=== PATIENT | female | born 1985 | race Caucasian/White ===

== ENCOUNTER 2016-11-01 20:56 | Observation (INO) ==
--- NOTE | 2016-11-01 21:07 | Emergency Department Note ---
Disposition Clinical Impression: Suicidal ideation Alcohol intoxication Qualifiers: Complication of substance-induced condition: uncomplicated Qualified Code(s): F10.120 - Alcohol abuse with intoxication, uncomplicated Disposition: Still a Patient Referrals: NO,PCP [Primary Care Provider] - Forms: ED Satisfaction Letter Alcohol HPI - General Chief Complaint: ED Psychiatric Symptoms Stated Complaint: SI, intoxication Time Seen by Provider: 11/01/16 21:05 Source: patient Limitations: no limitations Nursing Notes Reviewed: Yes Vital Signs Reviewed: Yes - History of Present Illness Pt Subjective Complaint: alcohol intoxication Last Drink: unknown Chronic Alcohol Use: Yes Recent Trauma: No Associated symptoms: Reports: suicidality Treatments prior to arrival: none - Related Data Home Medications Medication Instructions Recorded Confirmed FLUoxetine HCl [Prozac] 40 mg PO 11/01/16 Allergies Allergy/AdvReac Type Severity Reaction Status Date / Time Sulfa (Sulfonamide AdvReac See Verified 11/01/16 21:26 Antibiotics) Comments sulfa AdvReac See Uncoded 11/01/16 21:26 Comments All systems ED: reviewed and negative except as stated. Constitutional: Denies: fever, chills Gastrointestinal: Denies: nausea, vomiting Neurological: Reports: headache Past Medical History - Past Medical History Source: patient, old records reviewed, obtained from family (Mother), nursing notes reviewed Medical history: Reports: no medical history Surgical history: Reports: no surgical history Psychiatric history: Reports: no psych history CLINICAL ASSISTANT history: Reports: no CLINICAL ASSISTANT history, bilateral tubal ligation, other - Social History Smoking Status: Current every day smoker Smokeless Tobacco Status: No Alcohol use: Reports: heavy, recent Drug use: Reports: none Physical Exam - General Limitations: no limitations General appearance: alert, in no apparent distress, appears intoxicated - Head Head exam: atraumatic, normocephalic, normal inspection - Eye Eye exam: Present: normal appearance, PERRL, EOMI - ENT ENT exam: normal exam, normal oropharynx, mucous membranes moist - Chest Chest inspection: Present: normal inspection, symmetric chest wall rise - Respiratory Respiratory exam: Present: normal lung sounds bilaterally - Cardiovascular Cardiovascular exam: Present: tachycardia - Abdominal Exam Abdominal exam: Present: soft, Non-Tender. Absent: tenderness, distention, guarding, rebound, rigidity - Neurological Exam Neurological exam: Present: alert - Psychiatric Psychiatric exam: Present: normal affect, suicidal ideation - Skin Skin exam: Present: warm, dry, intact, normal color Course Vital Signs Temperature 98.1 F 11/01/16 20:58 Pulse Rate 124 11/01/16 20:58 Respiratory Rate 20 11/01/16 20:58 Blood Pressure 136/88 11/01/16 20:58 O2 Sat by Pulse Oximetry 95 11/01/16 20:58 Temperature 98.1 F 11/01/16 20:58 Pulse Rate 111 11/01/16 21:32 Respiratory Rate 20 11/01/16 21:32 Blood Pressure 127/87 11/01/16 21:32 O2 Sat by Pulse Oximetry 95 11/01/16 21:33 Oxygen Delivery Oxygen Delivery Room Air Alcohol - Lab Data Result diagrams: 11/01/16 21:27 11/01/16 21:27 Lab Results 11/01/16 11/01/16 11/01/16 Range/Units 21:06 21:06 21:06 WBC (4.3-11.1) K/mcL RBC (3.82-4.97) M/mcL Hgb (11.5-15.4) g/dL Hct (35.3-44.9) % MCV (83.0-100.0) fL MCH (28.0-33.3) pg MCHC (31.6-35.5) g/dL RDW (11.5-14.5) % Plt Count (140-400) K/mcL MPV (9.4-12.4) fL Immature Gran % (0-4) % Seg Neutrophils % % Lymphocytes % % Monocytes % % Eosinophils % % Basophils % % Neutrophils # (1.6-8.9) K/mcL Lymphocytes # (0.6-4.6) K/mcL Monocytes # (0.0-1.3) K/mcL Eosinophils # (0.0-0.6) K/mcL Basophils # (0.0-0.2) K/mcL Sodium (136-145) mEq/L Potassium (3.5-4.5) mEq/L Chloride (98-109) mEq/L Carbon Dioxide (19-29) mEq/L BUN (7-20) mg/dL Creatinine (0.57-1.11) mg/dL Est GFR ( Amer) (> 60) Est GFR (Non-Af Amer) (> 60) BUN/Creatinine Ratio (6-26) Glucose (70-99) mg/dL Calculated Osmolality (280-300) Calcium (8.6-10.8) mg/dL Total Bilirubin (0.2-1.2) mg/dL Direct Bilirubin (0.0-0.5) mg/dL Indirect Bilirubin (0.0-1.2) mg/dL AST (5-34) Units/L ALT (0-55) Units/L Alkaline Phosphatase (38-126) Units/L Serum Total Protein (6.0-8.3) g/dL Albumin (3.5-5.0) g/dL Globulin (2.4-3.5) g/dL Albumin/Globulin Ratio (1.1-2.2) Urine Color Yellow (Yellow) Urine Clarity Cloudy A (Clear) Urine pH 6.0 (5.0-8.0) pH Units Ur Specific [place] 1.008 L (1.010-1.025) Urine Protein Negative (Neg-Trace) mg/dL Urine Glucose (UA) Normal (Normal) mg/dL Urine Ketones Negative (Negative) mg/dL Urine Blood Negative (Negative) Urine Nitrite Negative (Negative) Urine Bilirubin Negative (Negative) Urine Urobilinogen Normal (Normal) mg/dL Ur Leukocyte Esterase Trace H (Negative) Urine Microscopic RBC 0-3 (0-3) per hpf Urine Microscopic WBC 5-15 H (0-3) per hpf Ur Squamous Epith Cells Many H (None-Few) per lpf Urine Bacteria Few (None-Few) per hpf Hyaline Casts None Seen (None-Few) per lpf Urine Test Negative (Negative) Salicylates (15-30) mg/dL Urine Opiates Screen Negative (Uavttm=603) ng/mL Acetaminophen (10-30) mcg/mL Ur Barbiturates Screen Negative (Lwskfh=703) ng/mL Ur Phencyclidine Scrn Negative (Cutoff=25) ng/mL Ur Amphetamines Screen Negative (Gasmbd=8917) ng/mL U Benzodiazepines Scrn Negative (Qxnjzn=462) ng/mL Urine Cocaine Screen Negative (Cutoff= 300) ng/mL U Marijuana (THC) Screen Negative (Cutoff = 50) ng/mL Ethyl Alcohol (0-10) mg/dL 11/01/16 11/01/16 Range/Units 21:27 21:27 WBC 9.0 (4.3-11.1) K/mcL RBC 5.20 H (3.82-4.97) M/mcL Hgb 15.6 H (11.5-15.4) g/dL Hct 45.0 H (35.3-44.9) % MCV 86.5 (83.0-100.0) fL MCH 30.0 (28.0-33.3) pg MCHC 34.7 (31.6-35.5) g/dL RDW 13.5 (11.5-14.5) % Plt Count 370 (140-400) K/mcL MPV 9.9 (9.4-12.4) fL Immature Gran % 0.4 (0-4) % Seg Neutrophils % 55.0 % Lymphocytes % 35.8 % Monocytes % 6.4 % Eosinophils % 1.8 % Basophils % 0.6 % Neutrophils # 5.0 (1.6-8.9) K/mcL Lymphocytes # 3.2 (0.6-4.6) K/mcL Monocytes # 0.6 (0.0-1.3) K/mcL Eosinophils # 0.2 (0.0-0.6) K/mcL Basophils # 0.1 (0.0-0.2) K/mcL Sodium 142 (136-145) mEq/L Potassium 4.3 (3.5-4.5) mEq/L Chloride 106 (98-109) mEq/L Carbon Dioxide 23 (19-29) mEq/L BUN 11 (7-20) mg/dL Creatinine 1.15 H (0.57-1.11) mg/dL Est GFR ( Amer) > 60 (> 60) Est GFR (Non-Af Amer) 55 L (> 60) BUN/Creatinine Ratio 10 (6-26) Glucose 108 H (70-99) mg/dL Calculated Osmolality 294 (280-300) Calcium 9.1 (8.6-10.8) mg/dL Total Bilirubin 0.2 (0.2-1.2) mg/dL Direct Bilirubin 0.1 (0.0-0.5) mg/dL Indirect Bilirubin 0.1 (0.0-1.2) mg/dL AST 23 (5-34) Units/L ALT 25 (0-55) Units/L Alkaline Phosphatase 76 (38-126) Units/L Serum Total Protein 8.2 (6.0-8.3) g/dL Albumin 4.1 (3.5-5.0) g/dL Globulin 4.1 H (2.4-3.5) g/dL Albumin/Globulin Ratio 1.0 L (1.1-2.2) Urine Color (Yellow) Urine Clarity (Clear) Urine pH (5.0-8.0) pH Units Ur Specific [place] (1.010-1.025) Urine Protein (Neg-Trace) mg/dL Urine Glucose (UA) (Normal) mg/dL Urine Ketones (Negative) mg/dL Urine Blood (Negative) Urine Nitrite (Negative) Urine Bilirubin (Negative) Urine Urobilinogen (Normal) mg/dL Ur Leukocyte Esterase (Negative) Urine Microscopic RBC (0-3) per hpf Urine Microscopic WBC (0-3) per hpf Ur Squamous Epith Cells (None-Few) per lpf Urine Bacteria (None-Few) per hpf Hyaline Casts (None-Few) per lpf Urine Test (Negative) Salicylates < 5.0 L (15-30) mg/dL Urine Opiates Screen (Hoodyg=610) ng/mL Acetaminophen < 1.0 L (10-30) mcg/mL Ur Barbiturates Screen (Ccidmu=297) ng/mL Ur Phencyclidine Scrn (Cutoff=25) ng/mL Ur Amphetamines Screen (Xvzpny=7471) ng/mL U Benzodiazepines Scrn (Aozvvn=019) ng/mL Urine Cocaine Screen (Cutoff= 300) ng/mL U Marijuana (THC) Screen (Cutoff = 50) ng/mL Ethyl Alcohol 325 H (0-10) mg/dL
[2016-11-01 21:25] LABS: Bilirubin,Urine Negative (Negative); Blood,Urine Negative (Negative); Clarity,Urine Cloudy (Clear); Color,Urine Yellow (Yellow); Glucose,Urine (UA) Normal (Normal); Ketones,Urine Negative (Negative); Leukocyte Esterase,Urine Trace (Negative); Nitrite,Urine Negative (Negative); Protein,Urine Negative (Neg-Trace); Specific Gravity,Urine 1.008 (1.010-1.025); Urobilinogen,Urine Normal (Normal)
[2016-11-01 21:27] LABS: Bacteria,Urine Few per hpf (None-Few); Hyaline Casts,Urine None Seen per lpf (None-Few); RBC,Urine 0-3 per hpf (0-3); Squamous Epithelial Cell,Urine Many per lpf (None-Few)
[2016-11-01 21:31] LABS: Amphetamine Screen,Urine Negative ng/mL (Cutoff=1000); Barbiturate Screen,Urine Negative ng/mL (Cutoff=200); Benzodiazepines Screen,Urine Negative ng/mL (Cutoff=200); Cannabinoid Screen,Urine Negative ng/mL (Cutoff = 50); Cocaine Screen,Urine Negative ng/mL (Cutoff= 300); Opiate Screen,Urine Negative ng/mL (Cutoff=300); Phencyclidine Screen,Urine Negative ng/mL (Cutoff=25)
[2016-11-01 21:33] LABS: Basophils # 0.1 K/mcL (0.0-0.2); Basophils % 0.6 %; Eosinophils # 0.2 K/mcL (0.0-0.6); Eosinophils % 1.8 %; Hemoglobin 15.6 g/dL (11.5-15.4); Immature Granulocytes % 0.4 % (0-4); Lymphocytes # 3.2 K/mcL (0.6-4.6); Lymphocytes % 35.8 %; Mean Corpuscular HGB Conc 34.7 g/dL (31.6-35.5); Mean Corpuscular Volume 86.5 fL (83.0-100.0); Mean Platelet Volume 9.9 fL (9.4-12.4); Monocytes # 0.6 K/mcL (0.0-1.3); Monocytes % 6.4 %; Platelet Count 370 K/mcL (140-400); Red Cell Distribution Width 13.5 % (11.5-14.5)
[2016-11-01 21:48] LABS: Alanine Aminotransferase 25 Units/L (0-55); Albumin 4.1 g/dL (3.5-5.0); Alkaline Phosphatase 76 Units/L (38-126); Aspartate Amino Transferase 23 Units/L (5-34); BUN/Creatinine Ratio 10 (6-26); Bilirubin,Direct 0.1 mg/dL (0.0-0.5); Bilirubin,Indirect 0.1 mg/dL (0.0-1.2); Bilirubin,Total 0.2 mg/dL (0.2-1.2); Blood Urea Nitrogen 11 mg/dL (7-20); Calcium 9.1 mg/dL (8.6-10.8); Carbon Dioxide 23 mEq/L (19-29); Chloride 106 mEq/L (98-109); Globulin 4.1 g/dL (2.4-3.5); Glucose 108 mg/dL (70-99); Osmolality,Calculated 294 (280-300); Potassium 4.3 mEq/L (3.5-4.5); Sodium 142 mEq/L (136-145); Total Protein 8.2 g/dL (6.0-8.3); eGFR For African Americans > 60 (> 60); eGFR For Non-African Americans 55 (> 60)
[2016-11-01 21:50] LABS: Acetaminophen < 1.0 mcg/mL (10-30); Ethanol 325 mg/dL (0-10); Salicylate < 5.0 mg/dL (15-30)
[2016-11-01] MEDS ORDERED: Ibuprofen 800 MG TABLET PO ONE (21:57)
[2016-11-01] MEDS ORDERED: 0.9 % Sodium Chloride 1,000 ML IVC ONE ×2 (21:57→23:22)
[2016-11-02] MEDS: Nicotine 21 MG PATCH.TD24 TD SCH ×2 (01:25→07:51)
[2016-11-02] MEDS ORDERED: Naloxone 0.4 MG/ML INJ IVP PRN (01:49)
[2016-11-02] MEDS ORDERED: *HR* LORazepam 2 MG/ML VIAL IVP PRN ×3 (01:52→10:21)
--- NOTE | 2016-11-02 02:06 | Internal Med History&Physical ---
Date of Encounter: 11/02/16 Time of Encounter: 01:56 Assessment and Plan (1) Suicidal ideation Current visit: Yes Status: Acute Suicide precautions. Sitter at bedside. Psychiatry consult (2) Alcohol intoxication Current visit: Yes Status: Acute Pt has h/o alcohol abuse and intoxication. She is awake at this time and is able to maintain airway. She is at risk of alcohol withdrawal needs close monitoring / CIWA protocol, while awaiting psychiatry evaluation. Qualifiers: Complication of substance-induced condition: with unspecified complication Qualified Code(s): F10.129 - Alcohol abuse with intoxication, unspecified (3) Alcohol abuse Current visit: Yes Status: Chronic She is at risk of alcohol withdrawal needs close monitoring / CIWA protocol, while awaiting psychiatry evaluation. Thiamine and folate / vitamin supplements. (4) Nicotine dependence Current visit: Yes Status: Acute Nicotine patch Qualifiers: Nicotine product type: cigarettes Substance use status: uncomplicated Qualified Code(s): F17.210 - Nicotine dependence, cigarettes, uncomplicated Internal Medicine - H&P: HPI Chief complaint: Suicidal ideation Admitted From: Emergency Dept Plans for Post Hospital Care: Transfer Psych Facility History of present illness: Ms. Senior is a 31 year old female with history of alcohol abuse and untreated depression, was brought to the emergency department by her mother for suicidal ideation. Patient reports that she told her mother " I dont want to be here anymore" - She does not report any plans for suicide. She apparently got ticket to go to [place], "just to be there". She has no friends or family in [place]. She does not report homicidal ideation. She reports that she drinks about 15 beers a day for about 3 years. She detoxed herself once and she apparently felt that she was going to at that time. She relapsed due to her cravings. She feels that it is affecting her life and is not able to do any thing - " I drink all day". She denies chest pain, shortness of breath, cough, expectoration, fever, chills, nausea, vomiting, headache, blurry vision, weakness of extremities. She was evaluated in the emergency department and her ETOH level was 325 mg/dL. She needs psychiatry evaluation for suicidal ideation and admitted to the hospitalist service for alcohol intoxication. Past Med Surg Social Fam HX - Past Medical History Medical history: no medical history Psychiatric history: no psych history - Past Surgical History Surgical History: no surgical history - Social History Smoking Status: Current every day smoker Packs per day: 1 Smokeless Tobacco Status: No Alcohol use: heavy, recent Drug use: none - Family History Maternal Grandfather Hx Family Respiratory Disorders: Yes (Emphysema) Hx Family Cancer: No Hx Family GI Disorders: No Hx Family Genitourinary Disorders: No Hx Family Endocrine Disorder: No Hx Family Musculoskeletal Disorders: No Hx Family Neuromuscular Disorders: No Hx Family Neurologic Disorders: No Hx Family HEENT Disorders: No Hx Family Autoimmune Disorders: No Hx Family Reproductive Disorders: No Hx Family Psychosocial Disorders: No Hx Family Medical Disorders: No Internal Medicine - H&P: Meds FLUoxetine HCl [Prozac] 40 mg PO 11/01/16 [History] Allergies Sulfa (Sulfonamide Antibiotics) Adverse Reaction (Verified 11/01/16 21:26) See Comments sulfa Adverse Reaction (Uncoded 11/01/16 21:26) See Comments water blisters on skin All Systems PM: A 10-system review of systems was performed and is negative for pertinent findings except as documented above in the HPI. - Constitutional Vitals: Temp Pulse Resp BP Pulse Ox 97.9 F 115 20 110/70 94 11/02/16 00:54 11/02/16 00:54 11/02/16 00:54 11/02/16 00:54 11/02/16 00:54 Exam: General: Not in acute distress at the time of my evaluation HEENT: Oral mucosa is moist. No conjunctival palor or scleral icterus Neck: No obvious neck swellings Lungs: Clear to auscultation Cardiac: Regular rate and rhythm. No significant murmurs Abdomen: Soft, non tender. Bowel sounds present Genitourinary: No weller catheter Neurological: Alert and oriented. No gross localizing deficits Psych: Not aggressive or agitated Extremities: no significant leg edema Skin: No generalized rash Internal Med - H&P Results - Labs CBC & Chem 7: 11/01/16 21:27 11/01/16 21:27 - EKG Data -: EKG Interpreted by Myself EKG shows normal: sinus rhythm Rate: tachycardia
--- NOTE | 2016-11-02 05:49 | Emergency Department Note ---
Disposition Clinical Impression: Suicidal ideation Alcohol intoxication Qualifiers: Complication of substance-induced condition: with unspecified complication Qualified Code(s): F10.129 - Alcohol abuse with intoxication, unspecified Disposition: Admitted As Inpatient Condition: Fair Psych HPI - General Chief Complaint: ED Psychiatric Symptoms Stated Complaint: SI, intoxication Time Seen by Provider: 11/01/16 21:05 Source: patient Mode of arrival: ambulatory Limitations: no limitations Nursing Notes Reviewed: Yes Vital Signs Reviewed: Yes - Related Data Home Medications Medication Instructions Recorded Confirmed FLUoxetine HCl [Prozac] 40 mg PO 11/01/16 Allergies Allergy/AdvReac Type Severity Reaction Status Date / Time Sulfa (Sulfonamide AdvReac See Verified 11/01/16 21:26 Antibiotics) Comments sulfa AdvReac See Uncoded 11/01/16 21:26 Comments Constitutional: Denies: fever, chills Gastrointestinal: Denies: nausea, vomiting Neurological: Reports: headache Past Medical History - Past Medical History Medical history: Reports: no medical history Surgical history: Reports: no surgical history Psychiatric history: Reports: no psych history CRISIS CLINICIAN history: Reports: no CRISIS CLINICIAN history, bilateral tubal ligation, other - Social History Smoking Status: Current every day smoker Smokeless Tobacco Status: No Alcohol use: Reports: heavy, recent Drug use: Reports: none Physical Exam - General Limitations: no limitations General appearance: alert, in no apparent distress, appears intoxicated Course Vital Signs Temperature 98.1 F 11/01/16 20:58 Pulse Rate 124 11/01/16 20:58 Respiratory Rate 20 11/01/16 20:58 Blood Pressure 136/88 11/01/16 20:58 O2 Sat by Pulse Oximetry 95 11/01/16 20:58 Temperature 97.9 F 11/02/16 03:35 Pulse Rate 109 11/02/16 03:35 Respiratory Rate 20 11/02/16 03:35 Blood Pressure 94/62 11/02/16 03:35 O2 Sat by Pulse Oximetry 92 11/02/16 03:35 Oxygen Delivery Oxygen Delivery Room Air Psych - MDM Narrative Medical decision making narrative: I, Hernandez Tinsley, examined this patient and my medical decision-making was reviewed with the EMBEDDED SOFTWARE ARCHITECT/PA/Advanced Practice Nurse/Resident Physician. I agree with the documented findings, disposition and treatment plan as described except to the extent set forth below. 31-year-old female received in signout at 11 PM pending laboratory evaluation, reevaluation and disposition. Patient is intoxicated and will not be sober until the pharmaceutical service representative. She was mildly tachycardic and was started on IV fluids emergency department with improvement of the heart rate. Patient will be admitted to the hospital for further care and evaluation of her intoxication and suicidal ideation. Patient is comfortable with this plan. - Lab Data Result diagrams: 11/01/16 21:27 11/01/16 21:27 Lab Results 11/01/16 11/01/16 11/01/16 Range/Units 21:06 21:06 21:06 WBC (4.3-11.1) K/mcL RBC (3.82-4.97) M/mcL Hgb (11.5-15.4) g/dL Hct (35.3-44.9) % MCV (83.0-100.0) fL MCH (28.0-33.3) pg MCHC (31.6-35.5) g/dL RDW (11.5-14.5) % Plt Count (140-400) K/mcL MPV (9.4-12.4) fL Immature Gran % (0-4) % Seg Neutrophils % % Lymphocytes % % Monocytes % % Eosinophils % % Basophils % % Neutrophils # (1.6-8.9) K/mcL Lymphocytes # (0.6-4.6) K/mcL Monocytes # (0.0-1.3) K/mcL Eosinophils # (0.0-0.6) K/mcL Basophils # (0.0-0.2) K/mcL Sodium (136-145) mEq/L Potassium (3.5-4.5) mEq/L Chloride (98-109) mEq/L Carbon Dioxide (19-29) mEq/L BUN (7-20) mg/dL Creatinine (0.57-1.11) mg/dL Est GFR ( Amer) (> 60) Est GFR (Non-Af Amer) (> 60) BUN/Creatinine Ratio (6-26) Glucose (70-99) mg/dL Calculated Osmolality (280-300) Calcium (8.6-10.8) mg/dL Total Bilirubin (0.2-1.2) mg/dL Direct Bilirubin (0.0-0.5) mg/dL Indirect Bilirubin (0.0-1.2) mg/dL AST (5-34) Units/L ALT (0-55) Units/L Alkaline Phosphatase (38-126) Units/L Serum Total Protein (6.0-8.3) g/dL Albumin (3.5-5.0) g/dL Globulin (2.4-3.5) g/dL Albumin/Globulin Ratio (1.1-2.2) Urine Color Yellow (Yellow) Urine Clarity Cloudy A (Clear) Urine pH 6.0 (5.0-8.0) pH Units Ur Specific [place] 1.008 L (1.010-1.025) Urine Protein Negative (Neg-Trace) mg/dL Urine Glucose (UA) Normal (Normal) mg/dL Urine Ketones Negative (Negative) mg/dL Urine Blood Negative (Negative) Urine Nitrite Negative (Negative) Urine Bilirubin Negative (Negative) Urine Urobilinogen Normal (Normal) mg/dL Ur Leukocyte Esterase Trace H (Negative) Urine Microscopic RBC 0-3 (0-3) per hpf Urine Microscopic WBC 5-15 H (0-3) per hpf Ur Squamous Epith Cells Many H (None-Few) per lpf Urine Bacteria Few (None-Few) per hpf Hyaline Casts None Seen (None-Few) per lpf Urine Test Negative (Negative) Salicylates (15-30) mg/dL Urine Opiates Screen Negative (Pkydry=294) ng/mL Acetaminophen (10-30) mcg/mL Ur Barbiturates Screen Negative (Wtosem=304) ng/mL Ur Phencyclidine Scrn Negative (Cutoff=25) ng/mL Ur Amphetamines Screen Negative (Mdltii=5379) ng/mL U Benzodiazepines Scrn Negative (Yiqazy=780) ng/mL Urine Cocaine Screen Negative (Cutoff= 300) ng/mL U Marijuana (THC) Screen Negative (Cutoff = 50) ng/mL Ethyl Alcohol (0-10) mg/dL 11/01/16 11/01/16 Range/Units 21:27 21:27 WBC 9.0 (4.3-11.1) K/mcL RBC 5.20 H (3.82-4.97) M/mcL Hgb 15.6 H (11.5-15.4) g/dL Hct 45.0 H (35.3-44.9) % MCV 86.5 (83.0-100.0) fL MCH 30.0 (28.0-33.3) pg MCHC 34.7 (31.6-35.5) g/dL RDW 13.5 (11.5-14.5) % Plt Count 370 (140-400) K/mcL MPV 9.9 (9.4-12.4) fL Immature Gran % 0.4 (0-4) % Seg Neutrophils % 55.0 % Lymphocytes % 35.8 % Monocytes % 6.4 % Eosinophils % 1.8 % Basophils % 0.6 % Neutrophils # 5.0 (1.6-8.9) K/mcL Lymphocytes # 3.2 (0.6-4.6) K/mcL Monocytes # 0.6 (0.0-1.3) K/mcL Eosinophils # 0.2 (0.0-0.6) K/mcL Basophils # 0.1 (0.0-0.2) K/mcL Sodium 142 (136-145) mEq/L Potassium 4.3 (3.5-4.5) mEq/L Chloride 106 (98-109) mEq/L Carbon Dioxide 23 (19-29) mEq/L BUN 11 (7-20) mg/dL Creatinine 1.15 H (0.57-1.11) mg/dL Est GFR ( Amer) > 60 (> 60) Est GFR (Non-Af Amer) 55 L (> 60) BUN/Creatinine Ratio 10 (6-26) Glucose 108 H (70-99) mg/dL Calculated Osmolality 294 (280-300) Calcium 9.1 (8.6-10.8) mg/dL Total Bilirubin 0.2 (0.2-1.2) mg/dL Direct Bilirubin 0.1 (0.0-0.5) mg/dL Indirect Bilirubin 0.1 (0.0-1.2) mg/dL AST 23 (5-34) Units/L ALT 25 (0-55) Units/L Alkaline Phosphatase 76 (38-126) Units/L Serum Total Protein 8.2 (6.0-8.3) g/dL Albumin 4.1 (3.5-5.0) g/dL Globulin 4.1 H (2.4-3.5) g/dL Albumin/Globulin Ratio 1.0 L (1.1-2.2) Urine Color (Yellow) Urine Clarity (Clear) Urine pH (5.0-8.0) pH Units Ur Specific [place] (1.010-1.025) Urine Protein (Neg-Trace) mg/dL Urine Glucose (UA) (Normal) mg/dL Urine Ketones (Negative) mg/dL Urine Blood (Negative) Urine Nitrite (Negative) Urine Bilirubin (Negative) Urine Urobilinogen (Normal) mg/dL Ur Leukocyte Esterase (Negative) Urine Microscopic RBC (0-3) per hpf Urine Microscopic WBC (0-3) per hpf Ur Squamous Epith Cells (None-Few) per lpf Urine Bacteria (None-Few) per hpf Hyaline Casts (None-Few) per lpf Urine Test (Negative) Salicylates < 5.0 L (15-30) mg/dL Urine Opiates Screen (Idyiab=279) ng/mL Acetaminophen < 1.0 L (10-30) mcg/mL Ur Barbiturates Screen (Exriln=649) ng/mL Ur Phencyclidine Scrn (Cutoff=25) ng/mL Ur Amphetamines Screen (Xxtqdw=5601) ng/mL U Benzodiazepines Scrn (Zphpdi=779) ng/mL Urine Cocaine Screen (Cutoff= 300) ng/mL U Marijuana (THC) Screen (Cutoff = 50) ng/mL Ethyl Alcohol 325 H (0-10) mg/dL Psychiatric Medical Clearance - Medical Clearance Checklist Medical History: No Social History Section defined Current Vitals: Last Vital Signs Temp 97.9 F 11/02/16 03:35 Pulse 109 11/02/16 03:35 Resp 20 11/02/16 03:35 BP 94/62 11/02/16 03:35 Pulse Ox 92 11/02/16 03:35 Psychiatric Lab Panel: Drug Levels and Toxicity 11/01/16 11/01/16 21:06 21:27 Urine Opiates Screen Negative Acetaminophen < 1.0 L Ur Barbiturates Screen Negative Ur Phencyclidine Scrn Negative Ur Amphetamines Screen Negative U Benzodiazepines Scrn Negative Urine Cocaine Screen Negative U Marijuana (THC) Screen Negative Ethyl Alcohol 325 H Abnormal Labs: Abnormal lab results RBC 5.20 M/mcL (3.82-4.97) H 11/01/16 21:27 Hgb 15.6 g/dL (11.5-15.4) H 11/01/16 21:27 Hct 45.0 % (35.3-44.9) H 11/01/16 21: Creatinine 1.15 mg/dL (0.57-1.11) H 11/01/16 21: Est GFR (Non-Af Amer) 55 (> 60) L 11/01/16 21: Glucose 108 mg/dL (70-99) H 11/01/16 21: Globulin 4.1 g/dL (2.4-3.5) H 11/01/16 21: Albumin/Globulin Ratio 1.0 (1.1-2.2) L 11/01/16 21: Urine Clarity Cloudy (Clear) A 11/01/16 21: Ur Specific [place] 1.008 (1.010-1.025) L 11/01/16 21: Ur Leukocyte Esterase Trace (Negative) H 11/01/16 21:06 Urine Microscopic WBC 5-15 per hpf (0-3) H 11/01/16 21:06 Ur Squamous Epith Cells Many per lpf (None-Few) H 11/01/16 21:06 Salicylates < 5.0 mg/dL (15-30) L 11/01/16 21: Acetaminophen < 1.0 mcg/mL (10-30) L 11/01/16 21: Ethyl Alcohol 325 mg/dL (0-10) H 11/01/16 21: Statement of Medical Clearance: I have evaluated the patient, reviewed diagnostic information, and certify that the patient's medical condition is sufficiently stable that transfer to the psychiatric unit does not pose a significant risk of deterioration.
[2016-11-02] MEDS ORDERED: *HR* LORazepam 2 MG/ML VIAL IVP ONE (08:09)
[2016-11-02] MEDS ORDERED: Thiamine (B-1) 100 MG TABLET PO SCH (09:00)
[2016-11-02] MEDS ORDERED: Vitamin B Complex/Vit C/Vit E 1 EACH TABLET PO SCH (09:00)
[2016-11-02] MEDS ORDERED: Folic Acid 1 MG TABLET PO SCH (09:00)
--- NOTE | 2016-11-02 10:20 | Event Note ---
Date of Encounter: 11/02/16 Time of Encounter: 09:30 Patient seen and examined. On examination, patient sleeps supine in bed. Patient had just received 1 mg of Ativan IV for a CIWA score of 9. She is resting comfortably and awakened easily to light touch. She denied pain or concerns at this time. She denies current suicidal ideation but quickly falls back to sleep after speaking. Urinalysis negative. Tox screen negative except for alcohol. Mild acute kidney injury noted, will trend. Her mother is at the bedside. We will continue to monitor her for alcohol withdrawal. It is unclear how many beers she drinks per day but it appears as if she is a heavy drinker. We will continue suicide precautions and await psychiatry's recommendations. At this point, she is comfortable and not displaying signs of withdrawal, if she starts to withdrawal, will add by mouth Librium. 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 We will continue to monitor and assess for signs with withdrawal and continue suicide precautions. Awaiting psychiatry's recommendations.
[2016-11-02] MEDS: *HR* LORazepam 2 MG/ML VIAL IVP PRN ×2 (12:26→18:10)
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
[2016-11-02 18:46] VITALS: BP 117/80
--- NOTE | 2016-11-02 19:13 | Discharge Summary ---
Date of Encounter: 11/02/16 Time of Encounter: 19:11 - Discharge Diagnosis (1) Suicidal ideation Priority: Secondary Status: Acute (2) Alcohol intoxication Priority: Primary Status: Acute Qualifiers: Complication of substance-induced condition: with unspecified complication Qualified Code(s): F10.129 - Alcohol abuse with intoxication, unspecified (3) Alcohol abuse Priority: Secondary Status: Chronic (4) Nicotine dependence Priority: Secondary Status: Acute Qualifiers: Nicotine product type: cigarettes Substance use status: uncomplicated Qualified Code(s): F17.210 - Nicotine dependence, cigarettes, uncomplicated (5) Severe single current episode of major depressive disorder, without psychotic features Priority: Secondary Status: Acute - Discharge Medications Home Medications: FLUoxetine HCl [Prozac] 40 mg PO DAILY 11/01/16 [History] Allergies/Adverse Reactions: Allergies Sulfa (Sulfonamide Antibiotics) Allergy (Verified 11/02/16 13:04) Blister sulfa Allergy (Uncoded 11/02/16 13:04) Blister Date of admission: 11/01/16 23:52 Primary care physician: PCP NO Consults: 11/02/16 01:52 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 11/02/16 01:53 Consult to Psychiatry [CONS] Routine Consulting Provider: Roma Godfrey Reason for Consult: Suicidal ideation Call Completed: No - Patient Status Disposition: Transfer Psychiatric Hosp Condition: Fair Functional capacity at discharge: independent ambulation Overall status at discharge: patient is progressing back to baseline - Discharge Instructions Follow Up With: NO,PCP [Primary Care Provider] - Additional Instructions: Refrain from cigarette smoking. - Diet and Activity Activity: increase activity as tolerated Diet: regular diet Hospital course: Ms. Senior is a 31 year old female with no significant past medical history who was brought to the hospital for evaluation of suicidal ideation. She has a reported history of depression and alcohol dependence and abuse. She was alcohol intoxicated. She was admitted to the medical service. She was treated with IV fluids. She was given IV Ativan for withdrawal symptoms.she was monitored for withdrawal. Psychiatry was consulted and they recommended transfer to the inpatient psychiatric [facility] for initiation of antidepressant therapy and close observation. At this point the patient requires psychiatric admission. I have discussed this plan with her and she agrees to go voluntarily. She is medically clear for discharge to inpatient psychiatric floor. She will be initiated on a Valium taper by psychiatry. - Time Spent with Patient Total time spent providing and/or coordinating discharge services: - Constitutional Vitals: Temp Pulse Resp BP Pulse Ox 99.1 F 96 16 117/80 96 11/02/16 18:43 11/02/16 18:43 11/02/16 18:43 11/02/16 18:43 11/02/16 18:43 General appearance: Present: A&O X 3 (Fidgety ) - Respiratory Respiratory exam: Present: CTAB. Absent: accessory muscle use, rales, rhonchi, wheezes - Cardiovascular Cardiovascular exam: Present: RRR, +S1, +S2. Absent: diastolic murmur, gallop, rubs, systolic murmur
--- NOTE | 2016-11-03 20:05 | Electrocardiograph Report ---
[address] [place] [address] Test Date: 2016-11-01 Pat Name: Reanna Senior Department: 105 Room: 3B Gender: F Radio Commentator: : 1985 Requested By: Rip Page Order Number: [id number] Reading MD: Jair Flores MD Measurements Intervals [place] Rate: 109 P: 54 VA: 152 QRS: 42 QRSD: 88 T: 38 QT: 325 QTc: 389 Interpretive Statements SINUS TACHYCARDIA Electronically Signed On 11-03-2016 20:04:11 EDT by Jair Flores MD
== END 2016-11-02 20:25 ==
LOC: 3BNU 20:56 → EMEROO 20:56 → 3BNU 23:55
PROVIDERS: ADMIT Internal Medicine; ATTEND Nurse Practitioner Family

== ENCOUNTER 2016-11-02 20:37 | Inpatient (IN) ==
[2016-11-02] MEDS ORDERED: diazePAM 10 MG TABLET PO ONE (21:43)
[2016-11-02] MEDS: traZODone 50 MG TABLET PO PRN (22:06)
[2016-11-03] MEDS: diazePAM 10 MG TABLET PO SCH ×4 (08:42→21:00)
[2016-11-03] MEDS: Nicotine 21 MG PATCH.TD24 TD SCH (09:54)
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
[2016-11-03] MEDS: Ibuprofen 400 MG TABLET PO PRN ×2 (17:00→21:00)
[2016-11-03] MEDS: hydrOXYzine pamoate 25 MG CAPSULE PO PRN (18:31)
[2016-11-03] MEDS: traZODone 50 MG TABLET PO PRN (21:00)
[2016-11-04] MEDS: diazePAM 10 MG TABLET PO SCH ×3 (08:40→20:34)
[2016-11-04] MEDS: hydrOXYzine pamoate 25 MG CAPSULE PO PRN ×4 (08:41→22:20)
[2016-11-04] MEDS: Ibuprofen 400 MG TABLET PO PRN ×2 (08:42→12:52)
[2016-11-04] MEDS: Nicotine 21 MG PATCH.TD24 TD SCH (08:45)
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
[2016-11-04] MEDS: traZODone 50 MG TABLET PO PRN (20:33)
[2016-11-05] MEDS: hydrOXYzine pamoate 25 MG CAPSULE PO PRN ×3 (04:41→21:08)
[2016-11-05] MEDS: diazePAM 10 MG TABLET PO SCH ×2 (08:59→21:09)
[2016-11-05] MEDS: Nicotine 21 MG PATCH.TD24 TD SCH (08:59)
--- NOTE | 2016-11-05 14:34 | Psychiatry Progress Note ---
Date of Encounter: 11/05/16 Time of Encounter: 14:00 Subjective Interval history: Patient she will follow up. 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 I discussed with her starting medication that will help her depression and anxiety bazan she is going through detox and maintaining sobriety. She will be started on Wellbutrin and gabapentin, benefits and side effects were discussed and she is agreeable. Review of Systems Psychiatric: Reports: depression, anxiety, abnormal sleep pattern, suicidal ideation, hopelessness Objective: Exam Patient orientation: Yes Person, Yes Time, Yes Place Level of alertness: Alert Patient appearance: Appropriate, Well Groomed Behavior: calm, cooperative Psychomotor activity: Normal Eye contact: Maintains Eye Contact Mood description: Euthymic/stable Affect description: congruent with mood, euthymic Speech pattern: Normal rate, Normal rhythm, Normal tone Speech volume: Normal Thought process: Linear, Goal Oriented Thought content: No Suicidal ideation, No Homicidal ideation, No Overt delusions Perceptual disturbances: No Auditory hallucinations, No Visual hallucinations Judgment: Fair Insight: Partial Results - Vital Signs Vital Signs: Temp Pulse Resp BP 97.7 F 72 16 119/81 11/05/16 09:00 11/05/16 09:00 11/05/16 09:00 11/05/16 09:00 Assessment and Plan (1) Severe single current episode of major depressive disorder, without psychotic features Current visit: No Status: Acute Plan: Continue hospitalization, Close observation, Suicide Precautions per unit protocol, Encourage participation in unit milieu, Group Therapy, Monitor sleep, Monitor appetite Additional Plan: We will start patient on Wellbutrin SR 150 mg daily and gabapentin 200 mg twice a day. Risks, benefits, side effects, alternatives discussed w/pt: Yes Patient agreeable to treatment: Yes (2) EtOH dependence Current visit: No Status: Acute Risks, benefits, side effects, alternatives discussed w/pt: Yes Patient agreeable to treatment: Yes Qualifiers: Substance use status: in withdrawal Complication of substance-induced condition: uncomplicated Qualified Code(s): F10.230 - Alcohol dependence with withdrawal, uncomplicated Consult Discharge Plan - Plan Referrals: [facility] [place] [Outside] - 11/15/16 10:00 am (The above appointment is with Jeny Resendiz. This appointment is to establish you with a primary care provider and assess you for Vivitrol. Please arrive 15 minutes early for your new patient appointment, and bring the following items with you: insurance card, photo ID, any medication you take in the original bottles. If you are unable to bring these items, your appointment will be rescheduled. If you are unable to keep this appointment, 24 hour business notice of cancellation is expected. If you miss your new patient appointment, you cannot be re-scheduled in this practice for 3 months. This practice does not prescribe narcotics or see [facility] benefit recipients. You may call the office regularly to check for cancellations that would allow you to be seen sooner.) [facility] [Outside] (The above appointment is with When you come to your first appointment, you will have an orientation to the agency and you will meet with a counselor. Please bring the following with you to your first visit to the clinic: 1) proof of household income (two consecutive pay stubs, social security award letter, bank statement, statement letter from [facility] , child support statement, IRS 1040 or W2 form, or a statement from the person who financially supports you stating they help provide for your basic needs), 2 ) proof of residency (drivers license, a piece of mail showing your address, a statement from person you live with verifying you live at their address), 3) your social security card, 4) photo ID, 5) your insurance card (if you have commercial insurance you must call to obtain a prior authorization number before you arrive to your first appointment) and 6) if you do not have insurance but have applied for Medicaid, please bring verification you have applied. This is the first available appointment. You may contact the office regularly to check for cancellations that may allow you to be seen sooner. )
[2016-11-05] MEDS: BuPROPion SR (12 HR) 150 MG TABLET PO SCH (14:46)
[2016-11-05] MEDS: Gabapentin 100 MG CAPSULE PO SCH ×2 (14:46→21:09)
[2016-11-05] MEDS: traZODone 50 MG TABLET PO PRN (21:08)
[2016-11-05] MEDS: Ibuprofen 400 MG TABLET PO PRN (21:09)
[2016-11-06] MEDS: Nicotine 21 MG PATCH.TD24 TD SCH (08:14)
[2016-11-06] MEDS: BuPROPion SR (12 HR) 150 MG TABLET PO SCH (08:14)
[2016-11-06] MEDS: Gabapentin 100 MG CAPSULE PO SCH ×2 (08:15→21:36)
[2016-11-06] MEDS ORDERED: diazePAM 10 MG TABLET PO SCH (09:00)
--- NOTE | 2016-11-06 15:07 | Psychiatry Progress Note ---
Date of Encounter: 11/06/16 Time of Encounter: 14:45 Subjective Interval history: Patient seen for follow-up. She reports feeling less depressed and her energy level improving and she is more able to socialize with other patients. She is responding to new medication positively and denies any side effects. She is motivated to to sit up plans and goals for herself after discharge to stay sober. She denies any withdrawal symptoms or shaking,. Discharge plans are ongoing. She denied any suicidal ideation. Review of Systems Psychiatric: Reports: depression, anxiety, abnormal sleep pattern, suicidal ideation, hopelessness Objective: Exam Patient orientation: Yes Person, Yes Time, Yes Place Level of alertness: Alert Patient appearance: Appropriate, Well Groomed, Obese Behavior: calm, cooperative Psychomotor activity: Normal Eye contact: Maintains Eye Contact Mood description: Euthymic/stable Affect description: congruent with mood, full range Speech pattern: Normal rate, Normal rhythm, Normal tone Speech volume: Normal Thought process: Linear, Goal Oriented Thought content: No Suicidal ideation, No Homicidal ideation, No Overt delusions Perceptual disturbances: No Auditory hallucinations, No Visual hallucinations Judgment: Fair Insight: Partial Results - Vital Signs Vital Signs: Temp Pulse Resp BP 97 F L 71 18 155/78 11/06/16 09:00 11/06/16 09:00 11/06/16 09:00 11/06/16 09:00 Assessment and Plan (1) Severe single current episode of major depressive disorder, without psychotic features Current visit: No Status: Acute Plan: Continue hospitalization, Close observation, Suicide Precautions per unit protocol, Encourage participation in unit milieu, Group Therapy, Monitor sleep, Monitor appetite Risks, benefits, side effects, alternatives discussed w/pt: Yes Patient agreeable to treatment: Yes (2) EtOH dependence Current visit: No Status: Acute Plan: Continue hospitalization, Close observation, Suicide Precautions per unit protocol, Encourage participation in unit milieu, Group Therapy, Monitor sleep, Monitor appetite Risks, benefits, side effects, alternatives discussed w/pt: Yes Patient agreeable to treatment: Yes Qualifiers: Substance use status: in withdrawal Complication of substance-induced condition: uncomplicated Qualified Code(s): F10.230 - Alcohol dependence with withdrawal, uncomplicated Consult Discharge Plan - Plan Referrals: [facility] [place] [Outside] - 11/15/16 10:00 am (The above appointment is with Jeny Resendiz. This appointment is to establish you with a primary care provider and assess you for Vivitrol. Please arrive 15 minutes early for your new patient appointment, and bring the following items with you: insurance card, photo ID, any medication you take in the original bottles. If you are unable to bring these items, your appointment will be rescheduled. If you are unable to keep this appointment, 24 hour business notice of cancellation is expected. If you miss your new patient appointment, you cannot be re-scheduled in this practice for 3 months. This practice does not prescribe narcotics or see [facility] benefit recipients. You may call the office regularly to check for cancellations that would allow you to be seen sooner.) [facility] [Outside] - 11/19/16 2:00 pm (The above appointment is with [place] Núñez for counseling. When you come to your first appointment, you will have an orientation to the agency and you will meet with a counselor. Please bring the following with you to your first visit to the clinic: 1) proof of household income (two consecutive pay stubs, social security award letter, bank statement, statement letter from [facility], child support statement, IRS 1040 or W2 form, or a statement from the person who financially supports you stating they help provide for your basic needs), 2) proof of residency (drivers license, a piece of mail showing your address, a statement from person you live with verifying you live at their address), 3) your social security card, 4) photo ID, 5) your insurance card (if you have commercial insurance you must call to obtain a prior authorization number before you arrive to your first appointment) and 6) if you do not have insurance but have applied for Medicaid, please bring verification you have applied. This is the first available appointment. You may contact the office regularly to check for cancellations that may allow you to be seen sooner. )
[2016-11-06] MEDS: hydrOXYzine pamoate 25 MG CAPSULE PO PRN ×2 (15:25→21:38)
[2016-11-06] MEDS: Ibuprofen 400 MG TABLET PO PRN (21:37)
[2016-11-06] MEDS: traZODone 50 MG TABLET PO PRN (21:38)
[2016-11-07] MEDS: Nicotine 21 MG PATCH.TD24 TD SCH (09:25)
[2016-11-07] MEDS: BuPROPion SR (12 HR) 150 MG TABLET PO SCH (09:26)
[2016-11-07] MEDS: Gabapentin 100 MG CAPSULE PO SCH (09:26)
[2016-11-07] MEDS: hydrOXYzine pamoate 25 MG CAPSULE PO PRN (09:31)
[2016-11-07 09:41] VITALS: BP 118/86
--- NOTE | 2016-11-07 12:03 | Discharge Summary ---
Date of Encounter: 11/07/16 Time of Encounter: 11:56 Diagnosis - Discharge Diagnosis (1) Severe single current episode of major depressive disorder, without psychotic features Status: Acute (2) EtOH dependence Status: Acute Qualifiers: Substance use status: in withdrawal Complication of substance-induced condition: uncomplicated Qualified Code(s): F10.230 - Alcohol dependence with withdrawal, uncomplicated Medications - Discharge Medications Prescriptions: BuPROPion SR (12 HR) [Wellbutrin SR] 150 mg PO DAILY #30 tablet.er FLUoxetine HCl [Prozac] 40 mg PO DAILY #30 capsule Gabapentin [Neurontin] 200 mg PO BID #60 capsule traZODone [TraZODone] 150 mg PO HS PRN #60 tablet PRN Reason: Insomnia BuPROPion SR (12 HR) [Wellbutrin SR] 150 mg PO DAILY #30 tablet.er 11/07/16 [Rx] FLUoxetine HCl [Prozac] 40 mg PO DAILY #30 capsule 11/07/16 [Rx] Gabapentin [Neurontin] 200 mg PO BID #60 capsule 11/07/16 [Rx] traZODone [TraZODone] 150 mg PO HS PRN #60 tablet 11/07/16 [Rx] Allergies adhesive tape Allergy (Verified 11/03/16 00:12) Rash Sulfa (Sulfonamide Antibiotics) Allergy (Verified 11/02/16 13:04) Blister sulfa Allergy (Uncoded 11/02/16 13:04) Blister Provider Date of admission: 11/02/16 20:37 Primary care physician: PCP MARIO Discharging clinician: Luan Colmenares Assessment and Plan - Patient/Caregiver Discharge Instructions Activity: resume usual activities as tolerated Diet: regular diet Additional Instructions: Patient will obtain a state ID in [place], and also apply for [place] Medicaid , and then follow-up for mental health counseling, substance abuse counseling, primary care services and evaluation for medication assisted treatment (Vivitrol ) at [facility], located at [facility] [place] [address]. The phone number is [phone]. 06/01 crisis services can be reached at [phone] or [phone]. - Follow up Plan Follow up with: NO,PCP [Primary Care Provider] - Functional capacity at discharge: independent ambulation Overall status at discharge: Stable Disposition: Home, Self-Care Hospital Course Hospital course: Ms. Senior is a 31 year old female admitted for depression and suicidal ideation and alcohol dependence. For details of the admission please see H&P 1 units patient was treated for withdrawal from alcohol and she recovered, she was started on medication including fluoxetine, Wellbutrin and gabapentin in addition to trazodone for sleep. Patient responded well to medication denied any side effects she notices improvement in her sleep her energy level improved and she felt more motivated and optimistic. Her discharge plans included referral to alcohol treatment program and was recommended to have medication to help her craving for alcohol. On discharge patient was medically stable, denies suicidal ideation and she was future oriented and motivated to continue her outpatient treatment. - Time Spent with Patient Total time spent providing and/or coordinating discharge services: Greater than 30 minutes Quality - Multiple Antipsychotics Patient discharged on 2 or more antipsychotic medications: No Procedures - Procedures Procedures: Medication Management, Crisis Stabilization, Supportive Therapy, Group Therapy, Psychoeducational Therapy Mental Status Exam - Mental Status Exam Patient orientation: Yes Person, Yes Time, Yes Place Level of alertness: Alert Patient appearance: Appropriate, Well Groomed, Obese Behavior: calm, cooperative Psychomotor activity: Normal Eye contact: Maintains Eye Contact Mood description: Euthymic/stable Affect description: congruent with mood, full range Speech pattern: Normal rate, Normal rhythm, Normal tone Speech Volume: Normal Thought process: Linear, Goal Oriented Thought Content: No Suicidal ideation, No Homicidal ideation, No Overt delusions Perceptual Disturbances: No Auditory hallucinations, No Visual hallucinations Judgment: Limited Insight: Partial
== END 2016-11-07 16:40 | disposition home or self-care (01) | DRG 751 ==
LOC: SUATTDRO 20:37 → 1ANU 20:37
PROVIDERS: ADMIT Psychiatry & Neurology Psychiatry; ATTEND Psychiatry & Neurology Psychiatry